=== PATIENT | female | born 2000 | race Hispanic/Latino ===

== ENCOUNTER 2021-12-15 12:48 | Emergency (ER) | payer SELFPAY ==
--- OUTSIDE RECORDS SUMMARY | 2021-12-15 12:52 | XMS REPORT | Continuity of Care Document ---
:2000 Author Organization [facility] t Address [address] [place] [address] Care Team Providers Name Role Phone PCP, PATIENT DOES NOT HAVE A Primary Care Physician Unavailarthur Santana RN, Mary Attending Clinician Unavailable Only, Ang Db Test Attending Clinician Unavailable Nat OHARA, Lynnette Attending Clinician LYNNETTE JOHNS Attending Clinician Unavailable Doctor Unassigned, [place] Attending Clinician Unavailable LIZZIE AGUILAR Attending Clinician Unavailable Payers Payer Name Policy Type Policy Number Effective Date Expiration Date S ource Problems Condition Condition Condition Status Onset Resolution Last Treating Co mments Source Name Details Category Date Date Treatment Clinician Date No known No known Disease Unive rs active active ity of problems problems [facility] Allergies, Adverse Reactions, Alerts Allergy Allergy Status Severity Reaction(s) Onset Inactive Treating Comm ents Source Name Type Date Date Clinician NO KNOWN Drug Active Univers ALLERGIE Class ity of S [facility] Social History Social Habit Start Date Stop Date Quantity Comments Source Exposure to Not sure [facility] SARS-CoV-2 [facility] (event) Branch Tobacco use and 2014-11-22 2014-11-22 Never used Universit y of exposure 00:00:00 00:00:00 [facility] Alcohol intake 2014-11-22 2014-11-22 Current University of 00:00:00 00:00:00 non-drinker of [facility] [place] [place] alcohol Branch (finding) Tobacco Comment 2012-11-20 2012-11-20 no smoke Universit y of 00:00:00 00:00:00 exposure [facility] Sex Assigned At [birth year] Universit y of 00:00:00 00:00:00 [facility] Smoking Status Start Date Stop Date Source Never smoker [facility] Medications Ordered Filled Start Stop Current Ordering Indication Dosage Frequency Signature Comments Components Source Medication Medication Date Date Medication? Clinician (SIG) Name Name cyclobenzap 2018-0 Yes 5mg Take 1 Univ ers rine 5 mg 5-26 tablet by ity o f tablet 00:00: mouth 3 [place] 00 (three) Medical times Branch daily. cyclobenzap 2018-0 Yes 5mg Take 1 Univ ers rine 5 mg 5-26 tablet by ity o f tablet 00:00: mouth 3 [place] 00 (three) Medical times Branch daily. cyclobenzap 2018-0 Yes 5mg Take 1 Univ ers rine 5 mg 5-26 tablet by ity o f tablet 00:00: mouth 3 [place] 00 (three) Medical times Branch daily. Immunizations Ordered Immunization Filled Immunization Date Status Commen ts Source Name Name SARS-COV-2 COVID-19 2020-08-02 Completed Unive rsity of PFIZER VACCINE 00:00:00 [facility] SARS-COV-2 COVID-19 2020-08-02 Completed Unive rsity of PFIZER VACCINE 00:00:00 [facility] SARS-COV-2 COVID-19 2020-08-02 Completed Unive rsity of PFIZER VACCINE 00:00:00 [facility] SARS-COV-2 COVID-19 2020-07-12 Completed Unive rsity of PFIZER VACCINE 00:00:00 [facility] SARS-COV-2 COVID-19 2020-07-12 Completed Unive rsity of PFIZER VACCINE 00:00:00 [facility] SARS-COV-2 COVID-19 2020-07-12 Completed Unive rsity of PFIZER VACCINE 00:00:00 [facility] TDAP 2011-12-03 Completed University of 00:00:00 [facility] Meningococcal 2011-12-03 Completed University of Vaccine 00:00:00 [facility] TDAP 2011-12-03 Completed University of 00:00:00 [facility] Meningococcal 2011-12-03 Completed University of Vaccine 00:00:00 [facility] TDAP 2011-12-03 Completed University of 00:00:00 [facility] Meningococcal 2011-12-03 Completed University of Vaccine 00:00:00 [facility] HEPATITIS A 2007-04-27 Completed University of 00:00:00 [facility] HEPATITIS A 2007-04-27 Completed University of 00:00:00 [facility] HEPATITIS A 2007-04-27 Completed University of 00:00:00 [facility] Varicella 2006-10-27 Completed University of (varivax)(chicken 00:00:00 [place] M edical pox) Branch HEPATITIS A 2006-10-27 Completed University of 00:00:00 [facility] Varicella 2006-10-27 Completed University of (varivax)(chicken 00:00:00 [place] [facility] pox) Branch HEPATITIS A 2006-10-27 Completed University of 00:00:00 [facility] Varicella 2006-10-27 Completed University of (varivax)(chicken 00:00:00 [place] M edical pox) Branch HEPATITIS A 2006-10-27 Completed University of 00:00:00 [facility] Polio (IPV/OPV) 2005-01-22 Completed Universit y of 00:00:00 [facility] DTAP 2005-01-22 Completed University of 00:00:00 [facility] MMR 2005-01-22 Completed University of 00:00:00 [facility] Polio (IPV/OPV) 2005-01-22 Completed Universit y of 00:00:00 [facility] DTAP 2005-01-22 Completed University of 00:00:00 [facility] MMR 2005-01-22 Completed University of 00:00:00 [facility] Polio (IPV/OPV) 2005-01-22 Completed Universit y of 00:00:00 [facility] DTAP 2005-01-22 Completed University of 00:00:00 [facility] MMR 2005-01-22 Completed University of 00:00:00 [facility] HIB 4 Dose Schedule 2004-11-25 Completed Unive rsity of 00:00:00 [facility] HIB 4 Dose Schedule 2004-11-25 Completed Unive rsity of 00:00:00 [facility] HIB 4 Dose Schedule 2004-11-25 Completed Unive rsity of 00:00:00 [facility] Polio (IPV/OPV) 2001-11-25 Completed Universit y of 00:00:00 [facility] Varicella 2001-11-25 Completed University of (varivax)(chicken 00:00:00 [place] M edical pox) Branch DTAP 2001-11-25 Completed University of 00:00:00 [facility] MMR 2001-11-25 Completed University of 00:00:00 [facility] Polio (IPV/OPV) 2001-11-25 Completed Universit y of 00:00:00 [facility] Varicella 2001-11-25 Completed University of (varivax)(chicken 00:00:00 [place] M edical pox) Branch DTAP 2001-11-25 Completed University of 00:00:00 [facility] MMR 2001-11-25 Completed University of 00:00:00 [facility] Polio (IPV/OPV) 2001-11-25 Completed Universit y of 00:00:00 [facility] Varicella 2001-11-25 Completed University of (varivax)(chicken 00:00:00 [place] M edical pox) Branch DTAP 2001-11-25 Completed University of 00:00:00 [facility] MMR 2001-11-25 Completed University of 00:00:00 [facility] DTAP 2001-05-27 Completed University of 00:00:00 [facility] HIB 4 Dose Schedule 2001-05-27 Completed Unive rsity of 00:00:00 [facility] Hep B, Adol or Pedi 2001-05-27 Completed Unive rsity of Dosage 00:00:00 [facility] Pneumococcal 7 2001-05-27 Completed University of Conjugate, PCV7 00:00:00 [place] [facility] ical (Prevnar7) Branch DTAP 2001-05-27 Completed University of 00:00:00 [facility] HIB 4 Dose Schedule 2001-05-27 Completed Unive rsity of 00:00:00 [facility] Hep B, Adol or Pedi 2001-05-27 Completed Unive rsity of Dosage 00:00:00 [facility] Pneumococcal 7 2001-05-27 Completed University of Conjugate, PCV7 00:00:00 [place] Med ical (Prevnar7) Branch DTAP 2001-05-27 Completed University of 00:00:00 [facility] HIB 4 Dose Schedule 2001-05-27 Completed Unive rsity of 00:00:00 [facility] Hep B, Adol or Pedi 2001-05-27 Completed Unive rsity of Dosage 00:00:00 [facility] Pneumococcal 7 2001-05-27 Completed University of Conjugate, PCV7 00:00:00 [place] [facility] ical (Prevnar7) Branch DTAP 2001-03-27 Completed University of 00:00:00 [facility] HIB 4 Dose Schedule 2001-03-27 Completed Unive rsity of 00:00:00 [facility] Pneumococcal 7 2001-03-27 Completed University of Conjugate, PCV7 00:00:00 [place] [facility] ical (Prevnar7) Branch Polio (IPV/OPV) 2001-03-27 Completed Universit y of 00:00:00 [facility] DTAP 2001-03-27 Completed University of 00:00:00 [facility] HIB 4 Dose Schedule 2001-03-27 Completed Unive rsity of 00:00:00 [facility] Pneumococcal 7 2001-03-27 Completed University of Conjugate, PCV7 00:00:00 [facility] ical (Prevnar7) Branch Polio (IPV/OPV) 2001-03-27 Completed Universit y of 00:00:00 [facility] DTAP 2001-03-27 Completed University of 00:00:00 [facility] HIB 4 Dose Schedule 2001-03-27 Completed Unive rsity of 00:00:00 [facility] Pneumococcal 7 2001-03-27 Completed University of Conjugate, PCV7 00:00:00 [facility] ical (Prevnar7) Branch Polio (IPV/OPV) 2001-03-27 Completed Universit y of 00:00:00 [facility] Hep B, Adol or Pedi 2001-01-12 Completed Unive rsity of Dosage 00:00:00 [facility] Polio (IPV/OPV) 2001-01-12 Completed Universit y of 00:00:00 [facility] DTAP 2001-01-12 Completed University of 00:00:00 [facility] HIB 4 Dose Schedule 2001-01-12 Completed Unive rsity of 00:00:00 [facility] Hep B, Adol or Pedi 2001-01-12 Completed Unive rsity of Dosage 00:00:00 [facility] Polio (IPV/OPV) 2001-01-12 Completed Universit y of 00:00:00 [facility] DTAP 2001-01-12 Completed University of 00:00:00 [facility] HIB 4 Dose Schedule 2001-01-12 Completed Unive rsity of 00:00:00 [facility] Hep B, Adol or Pedi 2001-01-12 Completed Unive rsity of Dosage 00:00:00 [facility] Polio (IPV/OPV) 2001-01-12 Completed Universit y of 00:00:00 [facility] DTAP 2001-01-12 Completed University of 00:00:00 [facility] HIB 4 Dose Schedule 2001-01-12 Completed Unive rsity of 00:00:00 [facility] Hep B, Adol or Pedi 2000 Completed Unive rsity of Dosage 00:00:00 [facility] Hep B, Adol or Pedi 2000 Completed Unive rsity of Dosage 00:00:00 [facility] Hep B, Adol or Pedi 2000 Completed Unive rsity of Dosage 00:00:00 [facility] Procedures This patient has no known procedures. Encounters Start End Encounter Admission Attending Care Care Encounter Source Date/Time Date/Time Type Type Clinicians Facility Department ID 2020-12-26 2020-12-26 Letter HERI Santana [id number] Univers 00:00:00 00:00:00 (Out) Aneatrice SHAQ [id number] ity of [facility] [id number] Dre as [id number] [facility] [address] 2020-12-25 2020-12-25 Laboratory Only, Ang Db Test [facility] [id number] Univers 15:32:39 15:47:39 [facility] [id number] ity of [place] [id number] Dre as [place] [phone] [address] [facility] 2020-12-25 2020-12-25 Outpatient R NAT [facility] [id number] Univers 15:25:00 15:25:00 LYNNETTE ity of [facility] 2020-12-25 2020-12-25 Letter Doctor LIRIANO [id number] Univers 00:00:00 00:00:00 (Out) UnassignedSHAQ [id number] ity of [place] [facility] [id number] Dre as [phone] [facility] [address] 2020-08-02 2020-08-02 Outpatient R LAUREN [facility] [id number] [facility] 08:20:00 08:06:[address] [facility] Results This patient has no known results.
[2021-12-15 13:24] LABS: Urine Blood Trace-lysed (Negative); Urine Glucose Negative (Negative); Urine Protein Negative (Negative); Urine pH 5.5 (5.0-7.0)
[2021-12-15] MEDS ORDERED: predniSONE 20 MG TAB ONE (13:35)
[2021-12-15] MEDS ORDERED: FAMOTIDINE 20 MG TAB ONE (13:35)
[2021-12-15 13:55] LABS: Urine Bacteria <20 /HPF (<20); Urine Mucus 1+ /HPF (None Seen); Urine RBC <5 /HPF (None Seen)
--- NOTE | 2021-12-15 14:00 | ER ---
Nurse's Notes [facility] Name: Margi De Leon Age: 21 yrs Sex: Female : 2000 Arrival Date: 12/15/2021 Time: 12:51 Bed 11 Private MD: Diagnosis: Allergic urticaria Presentation: 12/15 12:54 Chief complaint: Hives on entire body since yesterday. Took Benadryl at 10pm last hb night. On Augmentin for UTI. Coronavirus screen: At this time, the client does not indicate any symptoms associated with coronavirus-19. Ebola Screen: No symptoms or risks identified at this time. Onset: The symptoms/episode began/occurred yesterday. Risk Assessment: Do you want to hurt yourself or someone else? Patient reports no desire to harm self or others. Onset of symptoms was December 14, 2021. 12:54 Method Of Arrival: Ambulatory hb 12:54 Acuity: MARYAN 4 hb 13:17 Anaphylaxis evaluation, the patient reports or I have noted the following symptoms mb8 which indicate a significant risk of anaphylaxis: urticaria. Initial Sepsis Screen: Does the patient meet any 2 criteria? No. Patient's initial sepsis screen is negative. Does the patient have a suspected source of infection? No. Patient's initial sepsis screen is negative. Historical: - Allergies: 12:58 Augmentin; mb8 - Home Meds: 12:56 None [Active]; hb - PMHx: 12:56 None; hb - PSHx: 12:56 None; hb - Immunization history:: Adult Immunizations up to date. - Social history:: Smoking status: Patient denies any tobacco usage or history of. Screenin:17 Abuse screen: Denies threats or abuse. Denies injuries from another. Nutritional mb8 screening: No deficits noted. Tuberculosis screening: No symptoms or risk factors identified. Fall Risk None identified. Assessment: 13:16 General: Appears in no apparent distress. comfortable, Behavior is calm, cooperative, mb8 appropriate for age. Pain: Denies pain. Respiratory: No deficits noted. Airway is patent Respiratory effort is even, unlabored, Respiratory pattern is regular, symmetrical, Breath sounds are clear bilaterally. Derm: Rash noted that is urticaria. Vital Signs: 12:54 BP 116 / 88; Pulse 113; Resp 16; Temp 97.1; Pulse Ox 100% on R/A; Weight 65.32 kg; hb Height 5 ft. (152.40 cm); Pain 0/10; 12:54 Body Mass Index 28.12 (65.32 kg, 152.40 cm) ED Course: 12:51 Patient arrived in ED. rg4 12:56 Triage completed. hb 12:56 Arm band placed on. 12:58 Cassius Zaragoza, RN is Primary Nurse. mb8 13:02 [facility]C [facility] kb 13:02 Leroy Gifford MD is Attending Physician. kb 13:17 Patient has correct armband on for positive identification. Allergy band placed. Bed in mb8 low position. Call light in reach. Side rails up X2. 13:17 No provider procedures requiring assistance completed. Patient did not have IV access mb8 during this emergency room visit. Administered Medications: 13:30 Drug: predniSONE 40 mg Route: PO; mb8 14:03 Follow up: Response: No adverse reaction mb8 13:30 Drug: Pepcid (famotidine) 20 mg Route: PO; mb8 14:03 Follow up: Response: No adverse reaction mb8 Medication: 13:17 VIS not applicable for this client. mb8 Outcome: 13:59 Discharge ordered by MD. kb 14:02 Discharged to home ambulatory. mb8 14:02 Condition: stable 14:02 Condition: stable 14:02 Discharge instructions given to patient, Instructed on discharge instructions, follow up and referral plans. medication usage, Demonstrated understanding of instructions, follow-up care, medications. 14:07 Prescriptions given X 2. mb8 14:08 Patient left the ED. mb8 Signatures: Soraya Cabrera FNP-C FNP-Ckb Baxter, Heather RN RN Sarah Taylor rg4 Cassius Zaragoza, RN RN mb8 Corrections: (The following items were deleted from the chart) 12:58 12:56 Allergies: No Known Allergies; mb8
--- NOTE | 2021-12-15 14:00 | EDPHYS ---
Physician Documentation [facility] Name: Margi De Leon Age: 21 yrs Sex: Female : 2000 Arrival Date: 12/15/2021 Time: 12:51 Bed 11 Private MD: ED Physician Leroy Gifford HPI: 12/15 13:09 This 21 yrs old Female presents to ER via Ambulatory with complaints of kb Allergic Reaction. 13:09 The patient presents with itching, rash. Onset: The symptoms/episode began/occurred kb yesterday. Associated signs and symptoms: Pertinent positives: rash. Possible causes: antibiotics, penicillin. At home the patient or guardian has treated the symptoms with Benadryl. Severity of symptoms: At their worst the symptoms were moderate in the emergency department the symptoms are unchanged. The patient has not experienced similar symptoms in the past. The patient has been recently seen by a physician:. Pt reports diffuse, itchy rash that started yesterday. Has been on Augmentin for 8 days for a UTI and has never taken it before. Denies any other new substances. . Historical: - Allergies: 12:58 Augmentin; mb8 - Home Meds: 12:56 None [Active]; hb - PMHx: 12:56 None; hb - PSHx: 12:56 None; hb - Immunization history:: Adult Immunizations up to date. - Social history:: Smoking status: Patient denies any tobacco usage or history of. ROS: 13:08 Constitutional: Negative for fever, chills, and weight loss. kb 13:08 Skin: Positive for rash, diffusely. 13:08 All other systems are negative. Exam: 13:08 Constitutional: This is a well developed, well nourished patient who is awake, alert, kb and in no acute distress. Head/Face: Normocephalic, atraumatic. ENT: Moist Mucous membranes Cardiovascular: Regular rate and rhythm with a normal S1 and S2. No gallops, murmurs, or rubs. No pulse deficits. Respiratory: Respirations even and unlabored. No increased work of breathing. Talking in full sentences MS/ Extremity: Pulses equal, no cyanosis. Neurovascular intact. Full, normal range of motion. Neuro: Awake and alert, GCS 15, oriented to person, place, time, and situation. Moves all extremities. Normal gait. Psych: Awake, alert, with orientation to person, place and time. Behavior, mood, and affect are within normal limits. 13:08 Skin: rash a moderate rash is noted, consistent with urticaria, and is diffusely located. Vital Signs: 12:54 BP 116 / 88; Pulse 113; Resp 16; Temp 97.1; Pulse Ox 100% on R/A; Weight 65.32 kg; hb Height 5 ft. (152.40 cm); Pain 0/10; 12:54 Body Mass Index 28.12 (65.32 kg, 152.40 cm) hb MDM: 13:02 Patient medically screened. kb 13:08 Data reviewed: vital signs, nurses notes. Data interpreted: Pulse oximetry: on room air kb is 100 %. Interpretation: normal. Counseling: I had a detailed discussion with the patient and/or guardian regarding: the historical points, exam findings, and any diagnostic results supporting the discharge/admit diagnosis, the need for outpatient follow up, a family practitioner, to return to the emergency department if symptoms worsen or persist or if there are any questions or concerns that arise at home. 12/15 13:08 Order name: Urine Microscopic Only; Complete Time: 13:59 kb 12/15 13:24 Order name: Urine Dipstick-Ancillary; Complete Time: 13:25 EDMS 12/15 13:08 Order name: Urine Dipstick-Ancillary (obtain specimen); Complete Time: 13:30 kb 12/15 13:25 Order name: Urine --Ancillary (enter results); Complete Time: 13:51 ss 12/15 13:08 Order name: Urine Test (obtain specimen); Complete Time: 13:31 kb Administered Medications: 13:30 Drug: predniSONE 40 mg Route: PO; mb8 14:03 Follow up: Response: No adverse reaction mb8 13:30 Drug: Pepcid (famotidine) 20 mg Route: PO; mb8 14:03 Follow up: Response: No adverse reaction mb8 Disposition: 16:23 Co-signature as Attending Physician, Leroy Gifford MD. rn Disposition Summary: 12/15/21 13:59 Discharge Ordered Location: Home kb Condition: Stable kb Diagnosis - Allergic urticaria kb Followup: kb - With: Emergency Department - When: As needed - Reason: Worsening of condition Followup: kb - With: Private Physician - When: 2 - 3 days - Reason: Recheck today's complaints, Continuance of care, Re-evaluation by your physician Discharge Instructions: - Discharge Summary Sheet natasha - Love, [id number] kb Forms: - Medication Reconciliation Form kb - Thank You Letter kb - Antibiotic Education kb - Prescription Opioid Use kb Prescriptions: - Pepcid 20 mg Oral Tablet - take 1 tablet by ORAL route every 12 hours for 5 days; 10 tablet; Refills: 0, kb Product Selection Permitted - Prednisone 20 mg Oral Tablet - take 1 tablet by ORAL route once daily for 5 days; 5 tablet; Refills: 0, kb Product Selection Permitted Signatures: Dispatcher [employer] EDMS Soraya Cabrera, ELECTRICAL TEST ENGINEER-C ELECTRICAL TEST ENGINEER-Ckb Leroy Gifford MD MD rn Baxter, Heather, RN RN hb Bates, Michael, RN RN mb8 Corrections: (The following items were deleted from the chart) 12:58 12:56 Allergies: No Known Allergies; jun
[2021-12-15 15:31] VITALS: BP 116/88; TEMP 97.1; O2SAT 100
== END 2021-12-15 14:08 | disposition home or self-care (01) ==
LOC: ER 12:48
DX: L50.0 Allergic urticaria (principal); Z88.1 Allergy status to other antibiotic agents
CPT/HCPCS: 81003; 81015; 81025; 87086; 87088; 99283; J7512